=== PATIENT | female | born 1980 | race African-American/Black ===

== ENCOUNTER 2017-04-20 09:56 | Emergency (ER) | payer BC, OTHER ==
[2017-04-20] MEDS ORDERED: Acetaminophen 500 MG TAB ONE (10:17)
[2017-04-20] MEDS ORDERED: Ketorolac Tromethamine 60 MG/2 ML VIAL ONE (10:17)
== END 2017-04-20 10:31 | disposition home or self-care (01) ==
LOC: NAV ERS 09:56
DX: R51 Headache (principal); J45.909 Unspecified asthma, uncomplicated
CPT/HCPCS: 96372; J1885

== ENCOUNTER 2018-01-08 07:01 | Emergency (ER) | payer BC, SELFPAY ==
--- NOTE | 2018-01-08 09:53 | RAD ---
RIGHT WRIST 3 VIEWS: Date: 01/08/18 HISTORY: Trauma to wrist. FINDINGS: There are no signs of fracture or dislocation. IMPRESSION: Negative right wrist. POS: [facility]
== END 2018-01-08 08:24 | disposition home or self-care (01) ==
LOC: NAV ERS 07:01
DX: S60.211A Contusion of right wrist, initial encounter (principal); J45.909 Unspecified asthma, uncomplicated; G43.909 Migraine, unspecified, not intractable, without status migrainosus; Y04.0XXA Assault by unarmed brawl or fight, initial encounter